=== PATIENT | male | born 1955 | race Caucasian/White ===

== ENCOUNTER 2018-12-15 09:27 | Emergency (ER) | payer OTHER ==
[~2018-12-15] VITALS: Ht 170.2 cm; Wt 87.1 kg
[~2018-12-15 09:27] MED LIST: ASPIRIN325; CELEXA20 MG; CRESTOR20 MG; FLONASE 0.05%50 MCG NASAL; HYDROCHLOROTHIA25 M2; METFORMIN HCL500 MG; TOPROL XL25 MG
[2018-12-15 09:46] LABS: URINE BILIRUBIN NEGATIVE (Negative); URINE BLOOD NEGATIVE (Negative); URINE CLARITY CLEAR; URINE COLOR YELLOW; URINE GLUCOSE-RANDOM 1+ (Negative); URINE KETONES NEGATIVE (Negative); URINE LEUKOCYTES-REFLEX NEGATIVE (Negative); URINE NITRITE-REFLEX NEGATIVE (Negative); URINE PROTEIN NEGATIVE (Negative); URINE SPECIFIC GRAVITY 1.015 (1.005-1.030); URINE UROBILINOGEN 0.2 E.U./dl (0.2-1.0)
[2018-12-15 10:00] LABS: ABSOLUTE EOSINOPHILS 0.1 thou/uL (0.0-0.7); ABSOLUTE LYMPHOCYTES 1.4 thou/uL (0.8-5.3); ABSOLUTE MONOCYTES 0.4 thou/uL (0.0-1.2); ABSOLUTE NEUTROPHILS 5.2 thou/uL (1.6-8.1); BASOPHILS 0.5 %; EOSINOPHILS 0.9 %; HEMATOCRIT 42.8 % (42.0-52.0); HEMOGLOBIN 14.9 gm/dL (14.0-18.0); MCHC 34.8 g/dL (28.0-37.0); MCV 89.1 fL (80.0-100.0); MONOCYTES 5.3 %; MPV 8.7 fl. (7.2-11.1); NUCLEATED RBCS 0 /100WBC; PLATELET COUNT* 161 thou/uL (150-400); POLYS 73.3 %; RDW-CV 13.4 % (10.5-14.5); WBC 7.1 thou/uL (4.0-11.0)
[2018-12-15 10:13] LABS: ALBUMIN 3.7 g/dL (3.4-5.0); CALCIUM 8.3 mg/dL (8.5-10.1); CREATININE 0.9 mg/dL (0.6-1.3); TOTAL BILIRUBIN 0.5 mg/dL (<0.1-1.0); TOTAL PROTEIN 6.9 g/dL (6.4-8.2)
[2018-12-15] MEDS ORDERED: IBUPROFEN 800800 M1 PO (12:10)
[2018-12-15] MEDS ORDERED: LEVAQUIN 500 M500 M3 PO (12:10)
[2018-12-15 12:24] VITALS: BP 128/72
== END 2018-12-15 12:26 | disposition home or self-care (01) ==
LOC: M.ERS 09:27
PROVIDERS: Nurse Practitioner Psychiatric/Mental Health
DX: N50.811 Right testicular pain (principal); R10.31 Right lower quadrant pain; E78.5 Hyperlipidemia, unspecified; I10 Essential (primary) hypertension; F32.9 Major depressive disorder, single episode, unspecified; E11.9 Type 2 diabetes mellitus without complications

== ENCOUNTER 2019-10-30 20:19 | Emergency (ER) | payer OTHER ==
[~2019-10-30] VITALS: Ht 170.2 cm; Wt 86.2 kg
[~2019-10-30 20:19] MED LIST changes: +IBUPROFEN 800800 M1 PO; +LEVAQUIN 500 M500 M3 PO
[2019-10-30 20:28] VITALS: BP 132/64
== END 2019-10-30 20:45 | disposition home or self-care (01) ==
LOC: M.ERS 20:19
DX: I86.1 Scrotal varices (principal); I10 Essential (primary) hypertension; E11.9 Type 2 diabetes mellitus without complications; E78.5 Hyperlipidemia, unspecified; F32.9 Major depressive disorder, single episode, unspecified

== ENCOUNTER → 2021-07-14 | Outpatient (CLI) | payer OTHER ==
--- NOTE | 2021-08-16 13:13 | SLEEP ---
[address] [address] SLEEP STUDY REPORT Name: CAROLFRED CHE Room: [facility]..#: [id number] Admission: 07/14/21 Attend Phys: Milind Chakraborty MD Discharge: Date of : 57 Report #: [id number] THIS REPORT FOR: cc: Amandeep Waldrop MD, Dean L. MD Pervez,Milind EDWARDS ~ DATE OF STUDY: 07/14/2021 SLEEP STUDY INDICATION FOR SLEEP STUDY: Severe obstructive sleep apnea. The patient unable to tolerate CPAP, has difficulty exhaling against a constant CPAP pressure. INTERPRETATION: Total duration of the study is 459 minutes, out of which he was asleep for 329 minutes with an overall sleep efficiency of 72%. Sleep onset was rapid occurring within 2 minutes of lying down in bed. REM onset occurred 329 minutes after sleep onset. N1 sleep duration is 13%, N2 duration is 74%, N3 duration is 5% and REM duration is 9%. Body position data indicates the patient was observed asleep in the supine position for 272 minutes, the rest of the time he was on the right side. Mean heart rate is noted to be on the lower side at 41. There were no significant periodic limb movements recorded. The arousal index is normal at 8.8. This is a BiPAP titration and review of the BiPAP titration indicates the patient was titrated beginning with a BiPAP pressure of 8/4, gradually increasing it to 14/8. With the administration of BiPAP of 14/8, there is marked improvement in the patient's sleep disordered respirations noted with an apnea-hypopnea index improving to 2.7. The O2 saturations are also adequately maintained with this therapy. REM supine sleep, however, is not observed on the final CPAP pressure. REM sleep is observed on a slightly lower pressure of 12/6 and occasional sleep related respiratory events did occur at that time. The patient at that time also was lying on his sides. IMPRESSION: Severe obstructive sleep apnea, previously documented. Also, the patient is documented to have failed CPAP therapy and has difficulty exhaling against a constant CPAP pressure during the sleep study with the administration of a BiPAP of 14/8. There is marked improvement in the patient's obstructive sleep apnea noted when in non-REM sleep. There is adequate control of the patient's sleep disordered respirations with this therapy. REM supine sleep, however, is not observed on the final BiPAP pressure. O2 saturations were adequately maintained during the sleep study. RECOMMENDATIONS: Recommend a BiPAP of 14/8 with heated humidity and mask per patient preference while asleep. During this sleep study, a [employer] AdventiWear full face mask, size large with medium [place] [address] SLEEP STUDY REPORT Name: FRED MEDINA [id number] Admission: 07/14/21 Attend Phys: Milind Chakraborty MD Discharge: Date of : 57 Report #: [id number] As above, there is adequate control in non-REM sleep. However, evaluation in REM sleep particularly in the supine position is limited. Therefore, I will plan to review memory card data for followup in the office and I may consider obtaining a nocturnal pulse oximetry with a BiPAP in place later. Recommend avoiding driving and other activities requiring vigilance if drowsy. His entire sleep study was reviewed by board certified sleep physician. <ELECTRONICALLY SIGNED> By: Milind Chakraborty MD 08/16/21 1313 1513 [id number] Chakraborty MD /nt
== END ==
LOC: M.SLEEPLAB 05-13 21:00
PROVIDERS: ATTEND Internal Medicine Critical Care Medicine
DX: G47.33 Obstructive sleep apnea (adult) (pediatric) (principal)